=== PATIENT | male | born 1945 | race Two or more races ===

== ENCOUNTER 2023-06-22 15:44 | Outpatient (REF) | payer MEDICARE, SELFPAY ==
[2023-06-22 17:11] LABS: Vitamin B12 729 pg/mL (200-900)
== END 2023-06-22 15:45 | disposition home or self-care (01) ==
LOC: HO.LAB 15:44
PROVIDERS: Visit Provider Psychiatry & Neurology Neurology
DX: G31.84 Mild cognitive impairment of uncertain or unknown etiology (principal)
CPT/HCPCS: 36415; 82607